=== PATIENT | male | born 1985 | race Caucasian/White ===

== ENCOUNTER 2017-06-09 06:21 | Inpatient (IN) | payer SELFPAY ==
[2017-06-09 06:25] VITALS: BP 131/76; PULSE 86; RESP 20; TEMP 99.2; O2SAT 99
[2017-06-09] MEDS ORDERED: SODIUM CHLOR 0.9% 1000 ML INJ 1,000 ML IV SCH (06:37)
--- NOTE | 2017-06-09 06:44 | PD ---
HPI Chief Complaint: Abdominal Pain Time Seen by Provider: 06:41 Travel History International Travel<30 days: No Contact w/Intl Traveler<30days: No Traveled to known affect area: No History of Present Illness HPI 32-year-old male notes right sided abdominal pain that is been present over the past couple days. Quality pain is sharp. Severity is severe. He denies specific modifying factors. He denies other concurrent complaints. He denies recurrent history of this. PFSH Past Medical History Medical History: Denies Significant Hx Influenza Vaccination: No Past Surgical History Surgical History: No Previous Surgery Social History Alcohol Use: Yes ([facility] beers) Tobacco Use: No Substance Use: No Allergies-Medications (Allergen,Severity, Reaction): Coded Allergies: No Known Allergies (Unverified , 06/09/17) Reported Meds & Prescriptions Reported Meds & Active Scripts Active No Active Prescriptions or Reported Medications Review of Systems Except as stated in HPI: all other systems reviewed are Neg Physical Exam Narrative GENERAL: Well-nourished, well-developed patient. Uncomfortable SKIN: Warm and dry. HEAD: Normocephalic and atraumatic. EYES: No injection or drainage. ENT: No nasal drainage noted. NECK: Supple, trachea midline. CARDIOVASCULAR: Regular rate and rhythm RESPIRATORY: No increased effort. No accessory muscle use. GASTROINTESTINAL: Abdomen soft, tender right upper and lower abdomen, nondistended. with guarding without rebound EXTREMITIES: No edema. NEUROLOGICAL: Awake and alert. Motor and sensory grossly within normal limits. Normal speech. Data Data Last Documented VS Vital Signs Date Time Temp Pulse Resp B/P Pulse Ox O2 Delivery O2 Flow Rate FiO2 06/09/17 06:25 99.2 86 20 131/76 99 Room Air Orders Complete Blood Count With Diff (06/09/17 06:37) Comprehensive Metabolic Panel (06/09/17 06:37) Lipase (06/09/17 06:37) Ct Abd/Pel W/O Iv Contrast (06/09/17 06:37) Iv Access Insert/Monitor (06/09/17 06:37) Ecg Monitoring (06/09/17 06:37) Oximetry (06/09/17 06:37) NPO (06/09/17 06:37) Ondansetron Inj (Zofran Inj) (06/09/17 06:45) Sodium Chlor 0.9% 1000 Ml Inj (Ns 1000 M (06/09/17 06:37) Sodium Chloride 0.9% Flush (Ns Flush) (06/09/17 06:45) Ketorolac Inj (Toradol Inj) (06/09/17 06:45) Piperacil-Tazo 3.375 Gm Premix (Zosyn 3. (06/09/17 07:15) Admit Order (Ed Use Only) (06/09/17 07:18) Labs Laboratory Tests Test 06/09/17 06:50 Sodium Level 137 MEQ/L Potassium Level 3.3 MEQ/L Chloride Level 101 MEQ/L Carbon Dioxide Level 28.1 MEQ/L Anion Gap 8 MEQ/L Blood Urea Nitrogen 13 MG/DL Creatinine 1.12 MG/DL Estimat Glomerular Filtration 76 ML/MIN Rate Random Glucose 114 MG/DL Calcium Level 9.5 MG/DL Total Bilirubin 0.8 MG/DL Aspartate Amino Transf 66 U/L (AST/SGOT) Alanine Aminotransferase 58 U/L (ALT/SGPT) Alkaline Phosphatase 86 U/L Total Protein 8.8 GM/DL Albumin 4.3 GM/DL Lipase 115 U/L White Blood Count 16.3 TH/MM3 Red Blood Count 5.32 MIL/MM3 Hemoglobin 14.7 GM/DL Hematocrit 43.2 % Mean Corpuscular Volume 81.3 FL Mean Corpuscular Hemoglobin 27.7 PG Mean Corpuscular Hemoglobin 34.1 % Concent Red Cell Distribution Width 12.8 % Platelet Count 321 TH/MM3 Mean Platelet Volume 7.8 FL Neutrophils (%) (Auto) 79.1 % Lymphocytes (%) (Auto) 10.9 % Monocytes (%) (Auto) 4.4 % Eosinophils (%) (Auto) 4.9 % Basophils (%) (Auto) 0.7 % Neutrophils # (Auto) 12.9 TH/MM3 Lymphocytes # (Auto) 1.8 TH/MM3 Monocytes # (Auto) 0.7 TH/MM3 Eosinophils # (Auto) 0.8 TH/MM3 Basophils # (Auto) 0.1 TH/MM3 CBC Comment DIFF FINAL Differential Comment MDM Medical Decision Making Medical Screen Exam Complete: Yes Emergency Medical Condition: Yes Medical Record Reviewed: Yes (past history confirmed) Interpretation(s) CBC & BMP Diagram 06/09/17 06:50 Last 24 hours Impressions Abdomen/Pelvis CT 06/09/17 0637 Signed Impressions: Service Date/Time: Friday, June 09, 2017 06:51 - CONCLUSION: Periappendiceal and pericecal inflammation with dilated appendix characteristic of acute appendicitis. No evidence of adjacent abscess or free air. Faisal Mayer MD Differential Diagnosis Kidney stone, cholecystitis, UTI, musculoskeletal Narrative Course Will check labs, urine, CAT scan and dose with Toradol and reevaluate patient updated, agrees to surgery, will discuss with surgeon Physician Communication Physician Communication dr hurst agrees to admit Diagnosis Primary Impression: Appendicitis Qualified Code: K35.80 - Acute appendicitis, unspecified acute appendicitis type Admitting Information Admitting Physician Requests: Admit (per dr hurst) Scripts No Active Prescriptions or Reported Meds Loni Valdes MD Jun 09, 2017 06:43 Loni Valdes MD Jun 09, 2017 06:43
[2017-06-09] MEDS ORDERED: KETOROLAC TROMETHAMINE 30 MG/ML (IVP) VIAL IVP ONE (06:45)
[2017-06-09] MEDS ORDERED: SODIUM CHLORIDE 0.9% FLUSH 10 ML FLUSH IV FLUSH PRN (06:45)
[2017-06-09] MEDS ORDERED: ONDANSETRON HCL 4 MG/2 ML VIAL IVP ONE (06:45)
[2017-06-09 07:08] LABS: AUTOMATED NEUTROPHIL # 12.9 TH/MM3 (1.8-7.7); BASOPHIL # 0.1 TH/MM3 (0-0.2); BASOPHIL % 0.7 % (0.0-2.0); EOSINOPHIL # 0.8 TH/MM3 (0-0.4); EOSINOPHIL % 4.9 % (0.0-4.0); HEMATOCRIT 43.2 % (39.0-51.0); HEMO FLAGS DIFF FINAL; LYMPH % 10.9 % (9.0-44.0); LYMPHOCYTE # 1.8 TH/MM3 (1.0-4.8); MEAN CELL VOLUME 81.3 FL (80.0-100.0); MEAN CORPUSCULAR HEMOGLOBIN 27.7 PG (27.0-34.0); MEAN CORPUSCULAR HGB CONC 34.1 % (32.0-36.0); MONO % 4.4 % (0.0-8.0); NEUT % 79.1 % (16.0-70.0); PLATELET COUNT 321 TH/MM3 (150-450); RED BLOOD COUNT 5.32 MIL/MM3 (4.50-5.90); RED CELL DISTRIBUTION WIDTH 12.8 % (11.6-17.2); WHITE BLOOD COUNT 16.3 TH/MM3 (4.0-11.0)
--- NOTE | 2017-06-09 07:09 | RADRPT ---
EXAM DATE/TIME: 06/09/2017 06:51 [place] COMPARISON: No previous studies available for comparison. INDICATIONS : Right lower quadrant and flank pain today. ORAL CONTRAST: No oral contrast ingested. RADIATION DOSE: 9.96 CTDIvol (mGy) MEDICAL HISTORY : None SURGICAL HISTORY : None. ENCOUNTER: Initial ACUITY: 1 day PAIN SCALE: 9/10 LOCATION: Right lower quadrant abdomen TECHNIQUE: Volumetric scanning of the abdomen and pelvis was performed. Using automated exposure control and ad justment of the mA and/or kV according to patient size, radiation dose was kept as low as reasonably achievable to obtain optimal diagnostic quality images. DICOM format image data is available electro nically for review and comparison. FINDINGS: LOWER LUNGS: The visualized lower lungs are clear. LIVER: Homogeneous density without lesion. There is no dilation of the biliary tree. No calcified gallston es. SPLEEN: Normal size without lesion. PANCREAS: Within normal limits. KIDNEYS: Normal in size and shape. There is no mass, stone, or hydronephrosis. ADRENAL GLANDS: Within normal limits. VASCULAR: There is no aortic aneurysm. BOWEL/MESENTERY: Periappendiceal and pericecal inflammation with fluid stranding. Appendix is dilated. The stomach, sm all bowel, and colon are otherwise unremarkable. There is no free intraperitoneal air . ABDOMINAL WALL: Within normal limits. RETROPERITONEUM: There is no lymphadenopathy. BLADDER: No wall thickening or mass. REPRODUCTIVE: Within normal limits. INGUINAL: There is no lymphadenopathy or hernia. MUSCULOSKELETAL: Within normal limits for patient age. CONCLUSION: Periappendiceal and pericecal inflammation with dilated appendix characteristic of acute appendicitis . No evidence of adjacent abscess or free air. Faisal Mayer MD on June 09, 2017 at 7:04 Board Certified Radiologist. This report was verified electronically.
[2017-06-09] MEDS ORDERED: PIPERACIL-TAZO 3.375 GM PREMIX 50 ML IV ONE (07:15)
[2017-06-09 07:16] LABS: ALT (GPT) 58 U/L (12-78); ANION GAP 8 MEQ/L (5-15); AST (GOT) 66 U/L (15-37); BICARBONATE 28.1 MEQ/L (21.0-32.0); BLOOD UREA NITROGEN 13 MG/DL (7-18); CHLORIDE 101 MEQ/L (98-107); GLOMERULAR FILTRATION RATE 76 ML/MIN (>89); POTASSIUM 3.3 MEQ/L (3.5-5.1); SODIUM (NA) 137 MEQ/L (136-145)
[2017-06-09 07:19] LABS: ALKALINE PHOSPHATASE 86 U/L (45-117); TOTAL BILIRUBIN ADULT 0.8 MG/DL (0.2-1.0)
[2017-06-09] MEDS ORDERED: BUPIVACAINE/EPINEPHRINE 0.5% PF 10 ML VIAL ONE (07:55)
[2017-06-09] MEDS ORDERED: BUPIVACAINE HCL PF 0.25% 30 ML VIAL ONE (08:04)
[2017-06-09] MEDS ORDERED: DEXAMETHASONE SOD PHOS 4 MG/ML VIAL ONE (08:42)
[2017-06-09] MEDS ORDERED: FAMOTIDINE 20 MG/2 ML VIAL ONE (08:42)
[2017-06-09] MEDS ORDERED: ACETAMINOPHEN 1000 MG/100 ML VIAL IV ONE (09:15)
[2017-06-09] MEDS: LACTATED RINGER'S 1000 ML INJ 1,000 ML IV SCH ×2 (11:16→21:55)
--- NOTE | 2017-06-09 11:16 | HHI.PR ---
cc: Glenn Chapin MD Immediate Post Op Note Procedure Date: Jun 09, 2017 Pre Op Diagnosis: Acute appendicitis Post Op Diagnosis: Perforated appendicitis Surgeon: Glenn Chapin [employer]orer [employer](s): None Procedure: Laparoscopic appendectomy Findings: Perforation at base of appendix, requiring stapling across base of cecum Complications: None Specimen(s) removed: Appendix to pathology Estimated blood loss: 75 ml Anesthesia: General Drains: AYAN IVF (800 ml) Patient to: PACU Patient Condition: Good Date/Time of Procedure: SEE SURGICAL CARE RECORD Glenn Chapin MD Jun 09, 2017 11:16
[2017-06-09] MEDS ORDERED: fentaNYL CITRATE 250 MCG/5 ML AMP ONE (11:21)
[2017-06-09] MEDS ORDERED: MIDAZOLAM HCL 2 MG/2 ML VIAL ONE (11:21)
[2017-06-09] MEDS ORDERED: KETOROLAC TROMETHAMINE 30 MG/ML (IVP) VIAL IVP PRN (11:30)
[2017-06-09] MEDS ORDERED: SODIUM CHLORIDE 0.9% FLUSH 5 ML FLUSH IVF PRN (11:30)
[2017-06-09] MEDS ORDERED: PIPERACIL-TAZO 3.375 GM PREMIX 50 ML IV SCH (11:30)
[2017-06-09] MEDS ORDERED: MORPHINE SULFATE 4 MG/ML INJ IV PUSH PRN (11:30)
[2017-06-09] MEDS ORDERED: NALOXONE HCL 0.4 MG/ML AMP IV PRN (11:30)
[2017-06-09] MEDS ORDERED: MORPHINE SULFATE 8 MG/ML INJ IV PUSH PRN (11:30)
[2017-06-09] MEDS ORDERED: DEXTROSE 50% IN WATER 50 ML VIAL(D50) IV PRN (11:30)
[2017-06-09] MEDS ORDERED: diphenhydrAMINE HCL 50 MG/ML VIAL IV PRN (11:30)
[2017-06-09] MEDS ORDERED: GLUCAGON 1 MG/ML VIAL IM/SQ PRN (11:30)
[2017-06-09] MEDS ORDERED: Post-op Orders (for Pharmacy) MISC XX ONE (11:30)
[2017-06-09] MEDS ORDERED: ACETAMINOPHEN/HYDROcodone 325 MG/7.5 MG TAB PO PRN (11:30)
[2017-06-09 12:00] VITALS: BP 130/71; PULSE 87; RESP 18; TEMP 98.5; O2SAT 97
--- NOTE | 2017-06-09 13:09 | MH ---
cc: ODALYS COVARRUBIAS DATE OF ADMISSION: 06/09/2017 REASON FOR ADMISSION Acute appendicitis. HISTORY OF PRESENT ILLNESS The patient is a 32-year-old male who noted right-sided abdominal pain for three days. He has never had this before and had reported nausea but no change in bowel habits. PAST MEDICAL HISTORY Significant for no previous surgery. SOCIAL HISTORY He drinks an occasional beer. He does not smoke or use other medications. He is a painter apprentice by trade. ALLERGIES HE HAS NO KNOWN ALLERGIES. MEDICATIONS He takes no medications. REVIEW OF SYSTEMS Negative except as indicated above. PHYSICAL EXAMINATION GENERAL: Physical exam reveals a well-developed male who is very uncomfortable. VITAL SIGNS: BP 131/76, pulse 86, respirations 20, temperature 99.2. HEENT: Sclerae are anicteric. CHEST: Chest is clear to auscultation. CARDIAC: Cardiac exam reveals regular rate and rhythm without murmurs. ABDOMEN: Abdomen is soft and tender throughout with peritoneal signs. The patient has guarding and rebound in the right lower quadrant but is also tender in the other three quadrants although much less so. Pulses are intact. NEUROLOGIC: Exam is nonfocal. LABORATORY VALUES WBC 16.3, hemoglobin 14.7, platelet count 321,000. Chemistries reveal potassium low at 3.3. Liver function tests are essentially normal except for AST slightly elevated as 66 and glucose of 114. IMAGING Imaging demonstrates a CT scan which has periappendiceal and pericecal inflammation with fluid stranding and dilated stomach. There was no free intraperitoneal air. ASSESSMENT Acute appendicitis. PLAN I have discussed with the patient consideration for and the need for acute intervention given his peritoneal signs. We briefly discussed antibiotic treatment alone, and I do not recommend this given his peritoneal findings. He is in agreement with proceeding immediately with surgery. The risks of surgery were discussed with the patient including but not limited to bleeding, infection, need for drainage, adhesion formation, need for reoperation, as well as intestinal leakage with fistula formation. I have discussed remedies, consequences, alternatives and convalescence; he vocalizes understanding and agrees to proceed. MD JESSICA Epstein/ALYSA /11:32 AM /12:58 PM
[2017-06-09] MEDS ORDERED: NEOSTIGMINE 3 MG/3 ML SYR IV ONE (13:24)
[2017-06-09] MEDS ORDERED: PROPOFOL 200 MG/20 ML AMP IV ONE (13:24)
[2017-06-09] MEDS ORDERED: ONDANSETRON HCL 4 MG/2 ML VIAL IV PUSH ONE (13:24)
[2017-06-09] MEDS ORDERED: LACTATED RINGER'S 1000 ML INJ 1,000 ML IV ONE (13:25)
[2017-06-09] MEDS ORDERED: PCA - TOTAL MG MORPHINE DELIVERED PER SHIFT SCH (14:00)
[2017-06-09 16:00] VITALS: BP 129/72; PULSE 101; RESP 18; TEMP 99.4; O2SAT 98
[2017-06-09] MEDS: INSULIN NovoLIN REGULAR SUPPLEMENTAL SCALE SQ SCH ×2 (16:00→21:55)
[2017-06-09] MEDS: PIPERACIL-TAZO 3.375 GM PREMIX 50 ML IV SCH (16:30)
[2017-06-09 20:00] VITALS: BP 111/61; PULSE 92; RESP 18; TEMP 99.3; O2SAT 97
--- NOTE | 2017-06-09 20:39 | MP ---
cc: ODALYS CHAPIN MD DATE OF SURGERY 06/09/17 PROCEDURE Laparoscopic appendectomy. PREOPERATIVE DIAGNOSIS Acute appendicitis POSTOPERATIVE DIAGNOSIS Perforated appendicitis ANESTHESIA General endotracheal SURGEON Brent Chapin MD ESTIMATED BLOOD LOSS 75 mL FLUIDS 800 mL crystalloid COMPLICATIONS None. DRAINS AYAN x1 SPECIMEN Appendix and base of cecum to pathology. PROCEDURE IN DETAIL The patient was taken to the operating room and placed on the operating table in the supine position. After an adequate level of general endotracheal anesthesia was achieved, the abdomen was prepped and draped in the usual fashion. Time-out was taken confirming the correct patient, site and procedure to be performed. Skin and subcutaneous tissue was infiltrated with local anesthetic and an umbilical incision was made and carried through the fascia sharply. The peritoneal cavity was directly visualized. Purulence was noted in the intra-abdominal fluid and this was immediately cultured and sent for Gram stain and C&S. The patient then had placement of a 12 mm balloon trocar and the balloon was inflated. The abdomen was insufflated. The patient was placed in Trendelenburg position. A 5 mm 30 degree laparoscope was inserted and purulent material was noted in the abdomen and pelvis. Two 5 mm trocars were then placed with the first in the right lower quadrant and the second in the suprapubic region. Both entered the abdominal cavity under direct vision uneventfully. The appendix was noted to be grossly inflamed. Mobilization of the appendix with division of the mesoappendix with the harmonic scalpel revealed a perforation at the base of the appendix. Further manipulation of the cecum with mobilization in anticipation of requiring taking the appendix at the very base, revealed a second small area of perforation on the opposite side of the appendix at the base. At this point, two small fecaliths extruded from the appendix and the appendix avulsed with further manipulation. The appendix and the two fecaliths were placed into an EndoCatch device and removed via the umbilical port while observing via the right lower quadrant port site. The cecum was then further mobilized and the ileum dissected away from the base of the cecum as much as possible. At this point, the patient was best felt to be served by stapling of the base of the cecum and two staplings were made with the Endo stapler blue load. This allowed for complete excision of the appendix with the inflammatory process at the base of the appendix removed as well. This allowed for secure closure with a small cuff of normal not inflamed tissue taken within the staple line. When this had been completed, the ileocecal valve was noted to be completely away from the staple line and not stenosed. All irrigation was aspirated and, at the end of this, no purulent material was noted in the pelvis or above the liver. When this had been completed, a Ayan-Butler drain was brought in via the supraumbilical site and out via the right lower quadrant port site. The drain was placed in the right gutter and pointing down towards the pelvis. This was secured to the skin with a 3-0 nylon suture. Insufflation was discontinued and the umbilical port was removed. The fascia was closed in the umbilicus with 0 Vicryl suture in both a simple interrupted and [id number] fashion. The remaining local anesthetic was injected into the port sites. The skin was closed at the suprapubic port site and in the umbilical port site with 4-0 Vicryl in an interrupted buried fashion. These two sites were dressed with Steri-Strips and a 4x4 applied around the drain site. The patient was extubated and taken back to the recovery room in stable condition. He tolerated the procedure well. MD JESSICA Epstein/ /11:36 AM /8:32 PM
[2017-06-09] MEDS: SODIUM CHLORIDE 0.9% FLUSH 5 ML FLUSH IVF SCH (21:55)
[2017-06-09] MEDS: ACETAMINOPHEN/HYDROcodone 325 MG/7.5 MG TAB PO PRN (22:22)
[2017-06-10] VITALS: BP 125/75; PULSE 94; RESP 16; TEMP 99.4; O2SAT 98
[2017-06-10] MEDS: PIPERACIL-TAZO 3.375 GM PREMIX 50 ML IV SCH ×4 (00:38→23:44)
[2017-06-10] MEDS: LACTATED RINGER'S 1000 ML INJ 1,000 ML IV SCH ×4 (03:16→22:56)
[2017-06-10 04:00] VITALS: BP 111/71; PULSE 71; RESP 18; TEMP 97.5; O2SAT 98
[2017-06-10] MEDS: ACETAMINOPHEN/HYDROcodone 325 MG/7.5 MG TAB PO PRN ×2 (04:01→13:05)
[2017-06-10] MEDS: INSULIN NovoLIN REGULAR SUPPLEMENTAL SCALE SQ SCH ×4 (06:51→20:42)
[2017-06-10 07:14] LABS: AUTOMATED NEUTROPHIL # 10.7 TH/MM3 (1.8-7.7); BASOPHIL # 0.1 TH/MM3 (0-0.2); BASOPHIL % 0.4 % (0.0-2.0); EOSINOPHIL # 0.1 TH/MM3 (0-0.4); EOSINOPHIL % 0.8 % (0.0-4.0); HEMATOCRIT 36.2 % (39.0-51.0); HEMO FLAGS DIFF FINAL; LYMPH % 12.3 % (9.0-44.0); LYMPHOCYTE # 1.7 TH/MM3 (1.0-4.8); MEAN CELL VOLUME 82.5 FL (80.0-100.0); MEAN CORPUSCULAR HEMOGLOBIN 27.4 PG (27.0-34.0); MEAN CORPUSCULAR HGB CONC 33.2 % (32.0-36.0); MONO % 6.9 % (0.0-8.0); NEUT % 79.6 % (16.0-70.0); PLATELET COUNT 286 TH/MM3 (150-450); RED BLOOD COUNT 4.39 MIL/MM3 (4.50-5.90); RED CELL DISTRIBUTION WIDTH 13.2 % (11.6-17.2); WHITE BLOOD COUNT 13.4 TH/MM3 (4.0-11.0)
[2017-06-10 08:00] VITALS: BP 121/75; PULSE 73; RESP 18; TEMP 97.4; O2SAT 96
[2017-06-10] MEDS: SODIUM CHLORIDE 0.9% FLUSH 5 ML FLUSH IVF SCH ×2 (08:21→20:43)
[2017-06-10] MEDS: ONDANSETRON HCL 4 MG/2 ML VIAL IV PRN ×2 (11:46→23:05)
[2017-06-10 12:00] VITALS: BP 134/93; PULSE 74; RESP 18; TEMP 97.5; O2SAT 97
[2017-06-10 16:00] VITALS: BP 137/97; PULSE 86; RESP 18; TEMP 98.2; O2SAT 96
--- NOTE | 2017-06-10 16:57 | HHI.PR ---
Subjective Subjective Notes DAILY PROGRESS NOTE FOR SURGICAL ATTENDING, DR. FLOYD MARI Patient feels better Still has little pain Objective Vitals/I&O Vital Signs Date Time Temp Pulse Resp B/P Pulse Ox O2 Delivery O2 Flow Rate FiO2 06/10/17 12:00 97.5 74 18 134/93 97 06/10/17 08:17 Room Air 06/09/17 11:30 2 Labs Laboratory Tests Test 06/10/17 06:56 White Blood Count 13.4 Red Blood Count 4.39 Hemoglobin 12.0 Hematocrit 36.2 Mean Corpuscular Volume 82.5 Mean Corpuscular Hemoglobin 27.4 Mean Corpuscular Hemoglobin 33.2 Concent Red Cell Distribution Width 13.2 Platelet Count 286 Mean Platelet Volume 7.6 Neutrophils (%) (Auto) 79.6 Lymphocytes (%) (Auto) 12.3 Monocytes (%) (Auto) 6.9 Eosinophils (%) (Auto) 0.8 Basophils (%) (Auto) 0.4 Neutrophils # (Auto) 10.7 Lymphocytes # (Auto) 1.7 Monocytes # (Auto) 0.9 Eosinophils # (Auto) 0.1 Basophils # (Auto) 0.1 CBC Comment DIFF FINAL Differential Comment Date/Time Procedure Status Source Growth 06/09/17 09:20 Gram Stain - Final Resulted Wound Appendix 06/09/17 09:20 Wound Culture - Preliminary Resulted Gram Negative Mites[facility] Radiology Last Impressions Abdomen/Pelvis CT 06/09/17 0637 Signed Impressions: Service Date/Time: Friday, June 09, 2017 06:51 - CONCLUSION: Periappendiceal and pericecal inflammation with dilated appendix characteristic of acute appendicitis. No evidence of adjacent abscess or free air. Faisal Mayer MD Cardiovascular: Regular Abdomen: Post-op tenderness Narrative Exam AYAN in place to drainage Cloudy drainage A/P Problem List: (1) Appendicitis Assessment and Plan 32-year-old gentleman status post left ectopic appendectomy with drain placement Stable postoperative course Leave drain in place Advance activities and diet as tolerated Anticipate discharge the next 24-48 hours Attending Statement NOTE FOR SURGICAL ATTENDING, DR. FLOYD MARI I attest that I had a [id number] encounter with the patient on the same day, and personally performed and documented my assessment and findings in the medical record. The following services were provided during this hospital visit: Chart data review, vital sign assessments/reviewing monitor data Review of consultations notes if present. Medication orders/review and/or management Ordering and/or reviewing lab tests Ordering and/or interpreting/reviewing x-rays and/or diagnostic studies Care of the patient and discussion of the patient with the care team Documentation time To help prompt me to consider important information that might be impacting today's encounter and assessment, information from prior notes written by myself or my colleagues may have been "brought forward/copy and pasted" into today's note. Problem Qualifiers (1) Appendicitis: Qualified Code: K35.80 - Acute appendicitis, unspecified acute appendicitis type Floyd Mari MD Jun 10, 2017 16:57
[2017-06-10 20:00] VITALS: BP 137/90; PULSE 80; RESP 18; TEMP 99.7; O2SAT 96
[2017-06-11] VITALS: BP 135/88; PULSE 90; RESP 18; TEMP 99.1; O2SAT 98
[2017-06-11 04:00] VITALS: BP 153/107; PULSE 88; RESP 16; TEMP 99.3; O2SAT 97
[2017-06-11] MEDS: ONDANSETRON HCL 4 MG/2 ML VIAL IV PRN (05:10)
[2017-06-11 06:01] LABS: AUTOMATED NEUTROPHIL # 13.4 TH/MM3 (1.8-7.7); BASOPHIL # 0.1 TH/MM3 (0-0.2); BASOPHIL % 0.3 % (0.0-2.0); EOSINOPHIL # 0.1 TH/MM3 (0-0.4); EOSINOPHIL % 0.4 % (0.0-4.0); HEMATOCRIT 38.3 % (39.0-51.0); HEMO FLAGS DIFF FINAL; LYMPH % 9.7 % (9.0-44.0); LYMPHOCYTE # 1.6 TH/MM3 (1.0-4.8); MEAN CELL VOLUME 81.3 FL (80.0-100.0); MEAN CORPUSCULAR HEMOGLOBIN 27.7 PG (27.0-34.0); MEAN CORPUSCULAR HGB CONC 34.1 % (32.0-36.0); MONO % 7.7 % (0.0-8.0); NEUT % 81.9 % (16.0-70.0); PLATELET COUNT 335 TH/MM3 (150-450); RED BLOOD COUNT 4.71 MIL/MM3 (4.50-5.90); RED CELL DISTRIBUTION WIDTH 13.2 % (11.6-17.2); WHITE BLOOD COUNT 16.4 TH/MM3 (4.0-11.0)
[2017-06-11] MEDS: INSULIN NovoLIN REGULAR SUPPLEMENTAL SCALE SQ SCH ×4 (06:06→21:00)
[2017-06-11 06:26] LABS: BICARBONATE 29.6 MEQ/L (21.0-32.0); POTASSIUM 3.7 MEQ/L (3.5-5.1)
[2017-06-11 07:44] VITALS: BP 141/97; PULSE 100; RESP 18; TEMP 97.6; O2SAT 95
[2017-06-11] MEDS: PIPERACIL-TAZO 3.375 GM PREMIX 50 ML IV SCH ×2 (08:23→16:12)
[2017-06-11] MEDS: SODIUM CHLORIDE 0.9% FLUSH 5 ML FLUSH IVF SCH ×2 (08:24→21:00)
[2017-06-11 11:03] VITALS: BP 135/97; PULSE 80; RESP 18; TEMP 96; O2SAT 96
[2017-06-11] MEDS: LACTATED RINGER'S 1000 ML INJ 1,000 ML IV SCH ×2 (11:16→22:45)
--- NOTE | 2017-06-11 14:09 | HHI.PR ---
Subjective Subjective Notes Resting in bed Had emesis this AM but feels better now with NGT Objective Vitals/I&O Vital Signs Date Time Temp Pulse Resp B/P Pulse Ox O2 Delivery O2 Flow Rate FiO2 06/11/17 08:20 Room Air 06/11/17 07:44 97.6 100 18 141/97 95 06/09/17 11:30 2 Labs Laboratory Tests Test 06/11/17 06/11/17 05:18 05:48 Sodium Level 139 Potassium Level 3.7 Chloride Level 100 Carbon Dioxide Level 29.6 Anion Gap 9 Blood Urea Nitrogen 13 Creatinine 1.09 Estimat Glomerular Filtration 79 Rate Random Glucose 121 Calcium Level 8.8 White Blood Count 16.4 Red Blood Count 4.71 Hemoglobin 13.0 Hematocrit 38.3 Mean Corpuscular Volume 81.3 Mean Corpuscular Hemoglobin 27.7 Mean Corpuscular Hemoglobin 34.1 Concent Red Cell Distribution Width 13.2 Platelet Count 335 Mean Platelet Volume 7.8 Neutrophils (%) (Auto) 81.9 Lymphocytes (%) (Auto) 9.7 Monocytes (%) (Auto) 7.7 Eosinophils (%) (Auto) 0.4 Basophils (%) (Auto) 0.3 Neutrophils # (Auto) 13.4 Lymphocytes # (Auto) 1.6 Monocytes # (Auto) 1.3 Eosinophils # (Auto) 0.1 Basophils # (Auto) 0.1 CBC Comment DIFF FINAL Differential Comment Date/Time Procedure Status Source Growth 06/09/17 09:20 Gram Stain - Final Complete Wound Appendix 06/09/17 09:20 Wound Culture - Final Complete Escherichia Coli Anaerobic Gram Neg [facility] Radiology Last Impressions Abdomen/Pelvis CT 06/09/17 0637 Signed Impressions: Service Date/Time: Friday, June 09, 2017 06:51 - CONCLUSION: Periappendiceal and pericecal inflammation with dilated appendix characteristic of acute appendicitis. No evidence of adjacent abscess or free air. Faisal Mayer MD Cardiovascular: Regular Lungs: Clear Abdomen: Other (mildly distended; lap sites c/d/i; AYAN with SS drainage ) Extremities: No edema Narrative Exam NGT to LIWS A/P Problem List: (1) Appendicitis Assessment and Plan 32 year old male POD2 lap appy; perforated -NGT to LIWS -Likely has ileus -Continue AYAN -Okay for sips of water and ice -WBC trending up -Cultures reviewed; continue Zosyn -OOB and mobilize Attending Note - Dr. Chapin Abdomen soft; no flatus or BM yet The exam, history, and the medical decision-making described in the above note were completed with the assistance of the mid-level provider. I reviewed and agree with the findings presented. I attest that I had a [id number] encounter with the patient on the same day, and personally performed and documented my assessment and findings in the medical record. Problem Qualifiers (1) Appendicitis: Qualified Code: K35.80 - Acute appendicitis, unspecified acute appendicitis type Lulu Sanchez Jun 11, 2017 14:09 Glenn Chapin MD Jun 12, 2017 21:41
[2017-06-11] MEDS: METOCLOPRAMIDE HCL 10 MG/2 ML VIAL IV PUSH SCH ×2 (14:42→21:02)
[2017-06-11 15:15] VITALS: BP 143/95; PULSE 98; RESP 18; TEMP 97.1; O2SAT 95
[2017-06-11 20:05] VITALS: BP 155/91; PULSE 80; RESP 18; TEMP 97.2; O2SAT 97
[2017-06-12 00:50] VITALS: BP 143/93; PULSE 86; RESP 18; TEMP 98.8; O2SAT 95
[2017-06-12] MEDS: LACTATED RINGER'S 1000 ML INJ 1,000 ML IV SCH ×3 (01:35→19:16)
[2017-06-12] MEDS: PIPERACIL-TAZO 3.375 GM PREMIX 50 ML IV SCH ×4 (01:35→23:18)
[2017-06-12] MEDS: METOCLOPRAMIDE HCL 10 MG/2 ML VIAL IV PUSH SCH ×3 (06:20→23:17)
[2017-06-12] MEDS: INSULIN NovoLIN REGULAR SUPPLEMENTAL SCALE SQ SCH ×4 (06:20→21:00)
[2017-06-12 07:26] LABS: AUTOMATED NEUTROPHIL # 10.3 TH/MM3 (1.8-7.7); BASOPHIL # 0.1 TH/MM3 (0-0.2); BASOPHIL % 0.5 % (0.0-2.0); EOSINOPHIL # 0.2 TH/MM3 (0-0.4); EOSINOPHIL % 1.5 % (0.0-4.0); HEMATOCRIT 37.7 % (39.0-51.0); HEMO FLAGS DIFF FINAL; LYMPH % 14.6 % (9.0-44.0); MEAN CELL VOLUME 82.6 FL (80.0-100.0); MEAN CORPUSCULAR HEMOGLOBIN 27.4 PG (27.0-34.0); MEAN CORPUSCULAR HGB CONC 33.1 % (32.0-36.0); NEUT % 74.4 % (16.0-70.0); PLATELET COUNT 372 TH/MM3 (150-450); RED BLOOD COUNT 4.56 MIL/MM3 (4.50-5.90); RED CELL DISTRIBUTION WIDTH 13.1 % (11.6-17.2); WHITE BLOOD COUNT 13.9 TH/MM3 (4.0-11.0)
[2017-06-12 07:45] LABS: BICARBONATE 33.3 MEQ/L (21.0-32.0); POTASSIUM 3.6 MEQ/L (3.5-5.1)
[2017-06-12 08:00] VITALS: BP 137/88; PULSE 76; RESP 20; TEMP 97.9; O2SAT 96
[2017-06-12] MEDS: SODIUM CHLORIDE 0.9% FLUSH 5 ML FLUSH IVF SCH ×2 (09:00→20:14)
[2017-06-12 12:00] VITALS: BP 140/87; PULSE 67; RESP 20; TEMP 96.7; O2SAT 96
[2017-06-12 16:00] VITALS: BP 137/94; PULSE 69; RESP 20; TEMP 98; O2SAT 95
--- NOTE | 2017-06-12 17:38 | HHI.PR ---
Subjective Subjective Notes Resting in bed Feels better than yesterday Tolerating clear liquids Objective Vitals/I&O Vital Signs Date Time Temp Pulse Resp B/P Pulse Ox O2 Delivery O2 Flow Rate FiO2 06/12/17 16:00 98.0 69 20 137/94 95 06/11/17 20:00 Room Air 06/09/17 11:30 2 Labs Laboratory Tests Test 06/12/17 07:10 White Blood Count 13.9 Red Blood Count 4.56 Hemoglobin 12.5 Hematocrit 37.7 Mean Corpuscular Volume 82.6 Mean Corpuscular Hemoglobin 27.4 Mean Corpuscular Hemoglobin 33.1 Concent Red Cell Distribution Width 13.1 Platelet Count 372 Mean Platelet Volume 7.3 Neutrophils (%) (Auto) 74.4 Lymphocytes (%) (Auto) 14.6 Monocytes (%) (Auto) 9.0 Eosinophils (%) (Auto) 1.5 Basophils (%) (Auto) 0.5 Neutrophils # (Auto) 10.3 Lymphocytes # (Auto) 2.0 Monocytes # (Auto) 1.3 Eosinophils # (Auto) 0.2 Basophils # (Auto) 0.1 CBC Comment DIFF FINAL Differential Comment Sodium Level 142 Potassium Level 3.6 Chloride Level 100 Carbon Dioxide Level 33.3 Anion Gap 9 Blood Urea Nitrogen 15 Creatinine 1.09 Estimat Glomerular Filtration 79 Rate Random Glucose 101 Calcium Level 9.1 Date/Time Procedure Status Source Growth 06/09/17 09:20 Gram Stain - Final Complete Wound Appendix 06/09/17 09:20 Wound Culture - Final Complete Escherichia Coli Anaerobic Gram Neg [facility] Radiology Last Impressions Abdomen/Pelvis CT 06/09/17 0637 Signed Impressions: Service Date/Time: Friday, June 09, 2017 06:51 - CONCLUSION: Periappendiceal and pericecal inflammation with dilated appendix characteristic of acute appendicitis. No evidence of adjacent abscess or free air. Faisal Mayer MD Cardiovascular: Regular Lungs: Clear Abdomen: Other (minimally tender; lap sites c/d/i; AYAN in place with SS drainage ) Extremities: No edema Narrative Exam NGT to LIWS A/P Problem List: (1) Appendicitis Assessment and Plan 32 year old male POD3 lap appy; perforated -Clamp NGT -Clear liquids -Continue AYAN -WBC trending down -Cultures reviewed; continue Zosyn -OOB and mobilize Attending Note - Dr. Chapin No nausea Abdomen benign Likely remove NG in AM and advance diet, as he is tolerating clears The exam, history, and the medical decision-making described in the above note were completed with the assistance of the mid-level provider. I reviewed and agree with the findings presented. I attest that I had a [id number] encounter with the patient on the same day, and personally performed and documented my assessment and findings in the medical record. Problem Qualifiers (1) Appendicitis: Qualified Code: K35.80 - Acute appendicitis, unspecified acute appendicitis type Lulu Sanchez Jun 12, 2017 17:38 Glenn Chapin MD Jun 12, 2017 21:40
[2017-06-12 20:00] VITALS: BP 134/82; PULSE 58; RESP 16; TEMP 98.2; O2SAT 97
[2017-06-13 00:08] VITALS: BP 133/88; PULSE 67; RESP 17; TEMP 97.6; O2SAT 96
[2017-06-13] MEDS: LACTATED RINGER'S 1000 ML INJ 1,000 ML IV SCH ×2 (02:53→11:16)
[2017-06-13] MEDS: METOCLOPRAMIDE HCL 10 MG/2 ML VIAL IV PUSH SCH ×3 (05:18→21:11)
[2017-06-13] MEDS: INSULIN NovoLIN REGULAR SUPPLEMENTAL SCALE SQ SCH ×4 (06:17→21:11)
[2017-06-13 07:41] VITALS: BP 130/83; PULSE 56; RESP 16; TEMP 97.7; O2SAT 96
[2017-06-13] MEDS: PIPERACIL-TAZO 3.375 GM PREMIX 50 ML IV SCH ×3 (08:00→23:32)
[2017-06-13] MEDS: SODIUM CHLORIDE 0.9% FLUSH 5 ML FLUSH IVF SCH ×2 (09:00→21:11)
[2017-06-13 11:39] VITALS: BP 139/82; PULSE 58; RESP 16; TEMP 95.7; O2SAT 96
[2017-06-13 15:05] VITALS: BP 142/90; PULSE 58; RESP 16; TEMP 96.9; O2SAT 98
--- NOTE | 2017-06-13 15:48 | HHI.PR ---
Subjective Subjective Notes Tolerating clears +BM Objective Vitals/I&O Vital Signs Date Time Temp Pulse Resp B/P Pulse Ox O2 Delivery O2 Flow Rate FiO2 06/13/17 11:39 95.7 58 16 139/82 96 06/11/17 20:00 Room Air 06/09/17 11:30 2 Labs Date/Time Procedure Status Source Growth 06/09/17 09:20 Gram Stain - Final Complete Wound Appendix 06/09/17 09:20 Wound Culture - Final Complete Escherichia Coli Anaerobic Gram Neg [facility] Radiology Last Impressions Abdomen/Pelvis CT 06/09/17 0637 Signed Impressions: Service Date/Time: Friday, June 09, 2017 06:51 - CONCLUSION: Periappendiceal and pericecal inflammation with dilated appendix characteristic of acute appendicitis. No evidence of adjacent abscess or free air. Faisal Mayer MD Cardiovascular: Regular Lungs: Clear Abdomen: Non-distended, Other (abd soft; minimally tender; AYAN x 1 with SS drainage ) Extremities: No edema Narrative Exam NGT to LIWS A/P Problem List: (1) Appendicitis Assessment and Plan 32 year old male POD4 lap appy; perforated -DC NGT -Full liquids -Continue AYAN -Cultures reviewed; continue Zosyn -OOB and mobilize -Discussed with WILFREDO Roberts Problem Qualifiers (1) Appendicitis: Qualified Code: K35.80 - Acute appendicitis, unspecified acute appendicitis type Lulu Sanchez Jun 13, 2017 15:48 Lulu Sanchez Jun 13, 2017 15:48
[2017-06-13 20:15] VITALS: BP 137/92; PULSE 65; RESP 18; TEMP 98.8; O2SAT 96
[2017-06-14 00:15] VITALS: BP 130/78; PULSE 70; RESP 18; TEMP 99.6; O2SAT 98
[2017-06-14] MEDS: INSULIN NovoLIN REGULAR SUPPLEMENTAL SCALE SQ SCH ×3 (06:05→16:00)
[2017-06-14] MEDS: METOCLOPRAMIDE HCL 10 MG/2 ML VIAL IV PUSH SCH ×2 (06:05→14:00)
[2017-06-14 07:42] VITALS: BP 125/79; PULSE 56; RESP 16; TEMP 97; O2SAT 96
[2017-06-14 07:44] LABS: AUTOMATED NEUTROPHIL # 8.1 TH/MM3 (1.8-7.7); BASOPHIL # 0.1 TH/MM3 (0-0.2); BASOPHIL % 0.8 % (0.0-2.0); EOSINOPHIL # 0.5 TH/MM3 (0-0.4); EOSINOPHIL % 4.2 % (0.0-4.0); HEMATOCRIT 37.3 % (39.0-51.0); HEMO FLAGS DIFF FINAL; LYMPH % 19.1 % (9.0-44.0); LYMPHOCYTE # 2.3 TH/MM3 (1.0-4.8); MEAN CELL VOLUME 82.3 FL (80.0-100.0); MEAN CORPUSCULAR HEMOGLOBIN 27.4 PG (27.0-34.0); MEAN CORPUSCULAR HGB CONC 33.3 % (32.0-36.0); MONO % 9.4 % (0.0-8.0); NEUT % 66.5 % (16.0-70.0); PLATELET COUNT 354 TH/MM3 (150-450); RED BLOOD COUNT 4.53 MIL/MM3 (4.50-5.90); RED CELL DISTRIBUTION WIDTH 12.9 % (11.6-17.2); WHITE BLOOD COUNT 12.2 TH/MM3 (4.0-11.0)
[2017-06-14] MEDS: PIPERACIL-TAZO 3.375 GM PREMIX 50 ML IV SCH (07:57)
[2017-06-14 08:09] LABS: BICARBONATE 30.6 MEQ/L (21.0-32.0); POTASSIUM 3.4 MEQ/L (3.5-5.1)
[2017-06-14] MEDS: SODIUM CHLORIDE 0.9% FLUSH 5 ML FLUSH IVF SCH (09:00)
[2017-06-14] MEDS ORDERED: POTASSIUM CHLORIDE 10 MEQ CONTROLLED RELEASE TAB PO ONE (09:15)
[2017-06-14 11:57] VITALS: BP 137/87; PULSE 62; RESP 19; TEMP 97.2; O2SAT 97
[2017-06-14 15:37] VITALS: BP 150/89; PULSE 58; RESP 19; TEMP 97.9; O2SAT 99
[2017-06-14] MEDS ORDERED: AUGM875T3 PO (16:08)
[2017-06-14] MEDS ORDERED: AMOXICILLIN/CLAVULANATE K 875 MG TAB PO SCH (21:00)
== END 2017-06-14 19:05 | disposition home or self-care (01) | DRG 330 ==
LOC: HOR 06:21 → NEDA 07:20 → N06A 11:54
PROVIDERS: ADMIT Surgery Trauma Surgery; ATTEND Surgery Trauma Surgery
PROC: 0DTJ4ZZ Resection of Appendix, Percutaneous Endoscopic Approach (ICD-10-PCS; 2017-06-09)
PROC: 0DBH4ZZ Excision of Cecum, Percutaneous Endoscopic Approach (ICD-10-PCS; principal; 2017-06-09 08:49)
DX: K35.2 Acute appendicitis with generalized peritonitis (principal); K56.7 Ileus, unspecified; K38.1 Appendicular concretions
CPT/HCPCS: 74176; 80048; 80053; 82948; 83690; 85025; 87070; 87077; 87186; 87205; 88304; 94150; J0131; J1100; J1885; J2250; J2405; J2543; J2710; J2765; J3010; J7030; J7120